=== PATIENT | male | born 1930 | race Caucasian/White ===

== ENCOUNTER 2016-09-13 05:50 | Day surgery (SDC) | payer MEDICARE, OTHER ==
[2016-09-13] VITALS (19 sets, daily range): BP systolic 113–134; BP diastolic 56–70; PULSE 56–84; RESP 14–23; TEMP 97.8–98.7; O2SAT 92–100; Ht 175.9 cm; Wt 76.2 kg
[~2016-09-13] VITALS: Ht 175.9 cm; Wt 76.2 kg
[~2016-09-13 05:50] MED LIST: ASPI-558 PO; FINA5TAB30 PO; LEVO175T40 PO; LISI-127 PO
--- OUTSIDE RECORDS SUMMARY | 2016-09-13 05:55 | XMS REPORT | Continuity of Care Document ---
Author Author [facility] Organization [facility] Address Unknown Phone Unavailable Support Name Relationship Address Phone KAHLIL KLEIN COLD ROLL CATCHER Caregiver [address] [place] [address] Unavailable JOAN CORONADO DO Caregiver [address] [place] [address] Unavailable PASQUALE NORMAN Next Of Kin [address] [place] [address] Insurance Providers Guarantor Raul Barrios Address [address] [place] [address] Email DENIED 16 Payer Everence Policy Number [id number] Subscriber's Name Raul Barrios Relationship 18 Self Payer Medicare Policy Number [id number] Subscriber's Name Raul Barrios Relationship 18 Self Chief Complaint and Reason for Visit Chief Complaint Cough,Fever,Flu,URI Reason for Visit [id number] Problems Active Problems Medical Problem Onset Date Status Bradycardia Unknown Acute Dizzy Unknown Acute Nausea & vomiting Unknown Acute Nausea & vomiting Unknown Acute Past Problems Medical Problem Onset Date Influenza A Unknown Medications Current Home Medications Medication Dose Units Route Directions Days Qty Instructions Start Date Aspirin (Aspir 81) 81 Mg Tablet. 81 Mg Oral Daily 09/08/09 Finasteride (Proscar) 5 Mg Tablet 5 Mg Oral Daily 09/11/09 Levothyroxine Sodium 175 Mcg Tablet 175 Mcg Oral Daily 09/11/09 Lisinopril 10 Mg Tablet 10 Mg Oral Daily 09/11/09 Meclizine Hcl 25 Mg Tab.chew 0.5 Tab Oral Three Times A Day for Dizziness 14 Days 05/27/14 Oseltamivir Phosphate (Tamiflu) 75 Mg Capsule 75 Mg Oral Twice A Day 5 Days [address] Parish Ashraf [facility] [address] [phone] 08/18/16 Social History Social History Problem Response Recorded Date/Time Onset Date Status Hx Substance Use No 05/26/2014 9:34am Not Applicable Not Applicable Hx Alcohol Use No 05/26/2014 9:34am Not Applicable Not Applicable Has the pt used tobacco in the last 12 months No 05/26/2014 1:43pm Not Applicable Not Applicable Tobacco Usage none 05/26/2014 10:00am Not Applicable Not Applicable Hospital Discharge Instructions No hospital discharge instructions. Plan of Care Discharge Date 08/18/16 5:08pm Disposition 01 DISCHARGED HOME, SELF-CARE Condition at Discharge Stable Instructions/Education Provided Fever in Adults (ED) Influenza (ED) Prescriptions See Medication Section Referrals JOAN CORONADO DO Address: [address] [place] [phone] Additional Instructions/Education Take Tamiflu as directed. Use Tylenol or ibuprofen as needed for fevers. Follow with your primary care provider this week. Functional Status No functional status results. Allergies, Adverse Reactions, Alerts Allergen Type Severity Reaction Status Last Updated No Known Drug Allergies Allergy Unknown Active 08/18/16 Immunizations Query Response on File Recorded Date/Time Hx Influenza Vaccination Y 04/1205/26/14 1:43pm Hx Pneumococcal Vaccination Y 200405/26/14 1:43pm Hx Influenza Vaccination Y 04/1205/26/14 1:43pm DTaP Vaccine History YES 08/18/16 4:14pm Influenza Vaccine Hx YES 08/18/16 4:14pm Tetanus Diptheria Vaccine History YES 08/18/16 4:14pm Vital Signs Acute Vital Signs Vital Response Date/Time Temperature (Fahrenheit) 102.4 deg F (96.8 - 99.1) 08/18/2016 4:11pm Temperature (Calculated Celsius) 39.21595 degrees C (36.0 - 37.3) 08/18/2016 4:11pm Pulse Rate (adult) 105 bpm (60 - 100) 08/18/2016 4:11pm O2 Sat by Pulse Oximetry 93 % (90 - 100) 08/18/2016 4:11pm Blood Pressure 121/70 mm Hg 08/18/2016 4:11pm Height (Inches) 68.60 inches 08/18/2016 4:11pm Weight (Kilograms) 78.800 kg 08/18/2016 4:11pm Body Mass Index (BMI) 25.0 08/18/2016 4:11pm Results No known relevant diagnostic tests, laboratory data and/or discharge summary. Procedures No known history of procedures. Encounters Encounter Location Arrival/Admit Date Discharge/Depart Date Attending Provider Departed Emergency Room [facility] 08/18/16 3:39pm 08/18/16 5: 08pm KAHLIL KLEIN APRN Recent Diagnosis
--- OUTSIDE RECORDS SUMMARY | 2016-09-13 05:55 | XMS REPORT | Continuity of Care Document ---
Author Author [facility] Organization [facility] Address Unknown Phone Unavailable Allergies Active Description Code Type Severity Reaction Onset Reported/Identified Relationship to Patient Clinical Status Yes No Known Medication Allergies NKMA N/A N/A 06/03/2014 Medications Problems Procedures Results Encounters ACCT No. Visit Date/Time Discharge Status Pt. Type Provider Facility Loc./Unit Complaint [id number] 09/13/2013 10:22:00 09/13/2013 23 :59:59 CLS Outpatient
--- OUTSIDE RECORDS SUMMARY | 2016-09-13 05:55 | XMS REPORT | Continuity of Care Document ---
Author Author [facility] Organization [facility] Address Unknown Phone Unavailable Support Name Relationship Address Phone SOFÍA WHITE MD Caregiver [address] [place] [phone] SILVIA WILHELM MD Caregiver [address] [place] [phone] PASQUALE NORMAN Next Of Kin [address] [place], [place] [id number] Insurance Providers Payer Name Policy Number Subscriber Name Relationship Medicare [id number] Raul Sherman 18 Self [place] [id number] Raul Sherman 18 Self Advance Directives Directive Response Recorded Date/Time Advanced Directives Type DNR Documentation Living Will DPOA for Healthcare 12:41pm Ordered Resuscitation Status Full Code 05/26/14 1:31pm Chief Complaint and Reason for Visit Chief Complaint N/V AND BRADYCARDIA Reason for Visit Nausea & vomiting Bradycardia Dizzy Nausea & vomiting Problems Medical Problems Problem Onset Date Status Nausea & vomiting Unknown Active Bradycardia Unknown Active Dizzy Unknown Active Nausea & vomiting Unknown Active Medications Medication Dose Route Sig Days/Qty Instructions Order Date Discontinued Date Status Levothyroxine Sodium 175 Mcg PO DAILY 09/11/09 Active Finasteride 5 Mg PO DAILY 09/11/09 Active Lisinopril 10 Mg PO DAILY 09/11/09 Active Aspirin 81 Mg PO DAILY 09/08/09 Active Meclizine HCl 0.5 Tab PO THREE TIMES A DAY For DIZZINESS 14 Days Active Social History Social History Problem Response Recorded Date/Time Smoking Status Former smoker 05/26/2014 1:43pm When did patient START smoking? 1950'S 05/26/2014 1:43pm When did patient STOP smoking? 1950'S SMOKED ONLY 2 YRS 05/26/2014 1:43pm Hx Substance Use No 05/26/2014 9:34am Hx Alcohol Use No 05/26/2014 9:34am Has the pt used tobacco in the last 12 months No 05/26/2014 1:43pm Query Response Start Date Stop Date Smoking Status Former smoker Hospital Discharge Instructions Instructions: Care Instructions: Reason for Hospitalization: NAUSEA, VOMITTING, DIZZINESS, BRADYCARDIA I was in the hospital because (patient own words): I GOT DIZZY Condition at time of discharge: Good UP WITH STAND BY ASSIST Follow Up Appointments: FURTHER FOLLOW UP,LAB WORK,WORK UP PER [facility]. General Information: TRANSFER TO [facility].TRANSFER TO CARE OF DR. VERA CID. Condition at time of discharge: Fair Condition at time of discharge: Good see instructions Condition at time of discharge: Good Fair Plan of Care Discharge Date 05/27/14 10:57am Disposition 01 DISCHARGED HOME, SELF-CARE Instructions/Education Provided DI for Dizziness-Nonvertigo Prescriptions See Medications Section Functional Status Query Response Date Recorded Physical Hygiene Self May 26, 2014 9:34am Disabilities Visual May 26, 2014 12:41pm Devices Used Glasses May 26, 2014 12:41pm Dressing Self May 26, 2014 9:34am Ambulation Self May 26, 2014 9:34am Diet Self May 26, 2014 9:34am Mental Status Alert May 26, 2014 2:32pm Disabilities Visual May 26, 2014 12:41pm Devices Used Glasses May 26, 2014 12:41pm Physical Hygiene Self May 26, 2014 9:34am Dressing Self May 26, 2014 9:34am Ambulation Self May 26, 2014 9:34am Diet Self May 26, 2014 9:34am Allergies, Adverse Reactions, Alerts Allergen Type Severity Reaction Status Last Updated No Known Drug Allergies Allergy Unknown Active 05/26/14 Immunizations Name Given Type Hx Influenza Vaccination Y 04/12 Historical Hx Pneumococcal Vaccination Y 2004 Historical Hx Influenza Vaccination Y 04/12 Historical Vital Signs Acute Vital Signs Vital Response Date/Time Temperature (Fahrenheit) 96.6 deg F (96.8 - 99.1) Temperature (Calculated Celsius) 35.82607 degrees C (36.0 - 37.3) Temperature Source Oral Pulse Rate (adult) 59 bpm (60 - 100) Respiratory Rate 18 breaths/min (10 - 20) O2 Sat by Pulse Oximetry 95 % (90 - 100) Oxygen Delivery Method Room Air Blood Pressure 149/71 mm Hg Blood Pressure Source Automatic Cuff Height 5 ft 10 in Weight 208 lb Body Mass Index 29.0 kg/m^2 Results Test Source Date Result Interp. Ref. Range Comments Activated Partial Thromboplast Time May 26, 2014 10:10am 33.5 SEC N 24-36 Alanine Aminotransferase (ALT/SGPT) May 26, 2014 10:10am 28 U/L N 21-72 Albumin May 26, 2014 10:10am 3.6 G/DL N 3.5-5.0 Albumin/Globulin Ratio May 26, 2014 10:10am 1.7 RATIO N 1.1-2.2 Alkaline Phosphatase May 26, 2014 10:10am 82 U/L N 38-126 Anion Gap May 27, 2014 4:41am 5 MEQ/L N 5-15 Aspartate Amino Transf (AST/SGOT) May 26, 2014 10:10am 20 U/L N 17- 59 BUN/Creatinine Ratio May 27, 2014 4:41am 19 RATIO N 6-26 Band Neutrophils # September 12, 2009 4:47am 7.1 T/MM3 - Band Neutrophils % September 12, 2009 4:47am 42.0 % H 0-6 Basophils # (Auto) May 27, 2014 4:41am 0.1 T/MM3 N 0-0.2 Basophils (%) (Auto) May 27, 2014 4:41am 0.7 % N 0-2 Blood Urea Nitrogen May 27, 2014 4:41am 15.0 MG/DL N 9-20 Calcium Level May 27, 2014 4:41am 8.2 MG/DL DL 8.4-10.2 Calculated Osmolality May 27, 2014 4:41am 273 MOSM/KG N 261-280 Carbon Dioxide Level May 27, 2014 4:41am 31 MEQ/L H 22-30 Chemistry Specimen Hemolysis May 27, 2014 4:41am < 15 0-25 0-25 : No Hemolysis.26-70: Slight Hemolysis - can falsely elevate K and Urine Protein. 71-285: Moderate Hemolysis - can falsely elevate K, Troponin I, CA 19-9, PTH, CSF GLucose, and Urine Protein, and can falsely decrease Phenytoin. 286-999: Gross Hemolysis - can falsely elevate K, Troponin I, CA 19-9, PTH, CSF Glucose, and Urine Protine, and can falsely decrease Phenytoin. Recommend specimen recollection. Chloride Level May 27, 2014 4:41am 106 MEQ/L N 98-107 Creatinine May 27, 2014 4:41am 0.8 MG/DL N 0.8-1.5 Differential Total Cells Counted September 12, 2009 4:47am 100 % - Eosinophils # (Auto) May 27, 2014 4:41am 0.2 T/MM3 N 0-0.5 Eosinophils # (Manual) September 13, 2009 4:45am 1.1 T/MM3 H 0-0.5 Eosinophils % (Manual) September 13, 2009 4:45am 7.0 % H 0-4 Eosinophils (%) (Auto) May 27, 2014 4:41am 2.1 % N 0-4 Globulin May 26, 2014 10:10am 2.1 G/DL L 2.4-3.6 Glomerular Filtration Rate Calc May 27, 2014 4:41am 92 - Glucose Level May 27, 2014 4:41am 86 MG/DL N 75-110 Hematocrit May 27, 2014 4:41am 44.0 % N 41-53 Hemoglobin May 27, 2014 4:41am 15.0 GM/DL N 13.5-17.5 Icterus Index May 27, 2014 4:41am < 2 0-7 Immature Granulocyte # (Auto) May 27, 2014 4:41am 0.01 T/MM3 N 0.00 -0.03 Immature Granulocyte % (Auto) May 27, 2014 4:41am 0.1 % N 0.0-0.5 Lymphocytes # (Auto) May 27, 2014 4:41am 1.5 T/MM3 N 1-4.8 Lymphocytes # (Manual) September 13, 2009 4:45am 0.8 T/MM3 L 1-4.8 Lymphocytes % (Manual) September 13, 2009 4:45am 5.0 % L 23-45 Lymphocytes (%) (Auto) May 27, 2014 4:41am 19.7 % L 23-45 Mean Corpuscular Hemoglobin May 27, 2014 4:41am 30.7 UUG N 26-34 Mean Corpuscular Hemoglobin Concent May 27, 2014 4:41am 34.1 GM/DL N 31-37 Mean Corpuscular Volume May 27, 2014 4:41am 90.0 UM3 N 80-100 Mean Platelet Volume May 27, 2014 4:41am 11.5 UM3 N 9.4-12.4 Monocytes # (Auto) May 27, 2014 4:41am 0.8 T/MM3 N 0-0.8 Monocytes # (Manual) September 13, 2009 4:45am 0.2 T/MM3 N 0-0.8 Monocytes % (Manual) September 13, 2009 4:45am 1.0 % N 0-9.0 Monocytes (%) (Auto) May 27, 2014 4:41am 10.8 % H 0-9.0 BT-Apu-S-Type Natriuretic Peptide May 26, 2014 10:10am 323 PG/ML H 0-175 Rule in cut points: <50 years old=450; 50-75 years old=900; >75 years old=1800; When utilizing ProBNP rule-in cut points, adjustment for impaired renal function is typically not required. Neutrophils # (Auto) May 27, 2014 4:41am 5.1 T/MM3 N 1.8-7.7 Neutrophils # (Manual) September 13, 2009 4:45am 14.3 T/MM3 H 1.8-7.7 Neutrophils % (Manual) September 13, 2009 4:45am 87.0 % H 33-66 Neutrophils (%) (Auto) May 27, 2014 4:41am 66.6 % H 33-66 Platelet Count May 27, 2014 4:41am 139 T/MM3 N 130-400 Potassium Level May 27, 2014 4:41am 3.9 MEQ/L N 3.6-5 Prothromb Time International Ratio May 26, 2014 10:10am 1.08 N 0.81 -1.09 THERAPUTIC RANGE=2.00-3.00 FOR ANTI-THROMBOSIS THERAPUTIC RANGE=2.50- 3.50 FOR IMPLANTED VALVE RDW Standard Deviation May 27, 2014 4:41am 43.7 FL N 36.9-50.2 Red Blood Count May 27, 2014 4:41am 4.89 M/MM3 N 4.50-5.90 Sodium Level May 27, 2014 4:41am 142 MEQ/L N 134-144 Thyroid Stimulating Hormone (TSH) May 26, 2014 10:10am 0.85 MIU/L N 0.47-4.68 Total Bilirubin May 26, 2014 10:10am 1.10 MG/DL N 0.20-1.30 Total Protein May 26, 2014 10:10am 5.7 G/DL L 6.3-8.2 Troponin I May 27, 2014 4:41am < 0.012 ng/ml 0-0.12 Turbidity May 27, 2014 4:41am < 20 0-20 White Blood Count May 27, 2014 4:41am 7.6 T/MM3 N 4.5-11.0 Name: RAUL SHERMAN Unit #: [id number] : 1930 Sex: M Loc / Svc: SRG DOS: 05/26/14 Signed Report #: [id number] DIAGNOSTIC IMAGING REPORT TYPE OF EXAM: CT HEAD W/O CONTRAST Dictated By: JAYNA BOSE MD INDICATION: ITS.REASON: dizziness, gait instability, vomiting CT HEAD W/O CONTRAST: Comparison: None Technique: Axial CT images through the head were performed without contrast. FINDINGS: Atrophy. The ventricles are of normal size, shape, and contour for the patient's age. There are scattered areas of low attenuation in the white matter which most likely represent changes from chronic microvascular ischemia. The brainstem, cerebellum, and cerebral hemispheres otherwise have a normal morphology and CT attenuation. There is no evidence of midline displacement. No hemorrhage, signs of acute territorial stroke, mass effect, mass lesions, or edema is evident. The visualized portions of the skull base, midface, and calvarium demonstrate no abnormality. The paranasal sinuses are well aerated and free of significant disease. The tympanic and mastoid cavities appear normal. IMPRESSION: No acute intracranial abnormality or hemorrhage. There is a preliminary report by [facility]. . Procedures No known history of procedures. Encounters Encounter Location Date/Time Discharged Inpatient [facility] 05/26/14 12:32pm Recent Diagnosis Nausea & vomiting Bradycardia Dizzy Nausea & vomiting
[2016-09-13] MEDS ORDERED: FLEET PHOSPHO-SODA 133 ML ENEMA RECTALLY PRN (06:30)
--- NOTE | 2016-09-13 06:45 | NUR ---
ENEMA PT REPORTED STOOLS WERE STILL BROWN COLORED. FLEETS ENEMA GIVEN AT 0630. HAD LIGHT CARTER RELS Addendum: 09/13/16 at 0650 by DORIS RAHMAN RN RESULTS.
[2016-09-13] MEDS ORDERED: LR 1,000 ML IV SCH (07:00)
[2016-09-13] MEDS ORDERED: LIDOCAINE 1% (10mg/ml) 2ml SDV INJ ONE (07:00)
[2016-09-13] MEDS ORDERED: MIDAZOLAM 5mg/5ml INJECTION ONE ×2 (07:07→07:58)
[2016-09-13] MEDS ORDERED: FENTANYL 100mcg/2ml INJECTION ONE (07:07)
[2016-09-13] MEDS ORDERED: SALINE FLUSH 10ml SYRINGE ONE (07:08)
[2016-09-13] MEDS ORDERED: MIDAZOLAM 5mg/5ml INJECTION IV PRN (07:51)
[2016-09-13] MEDS ORDERED: FENTANYL 100mcg/2ml INJECTION IV PRN (07:51)
[2016-09-13] MEDS ORDERED: DOCU-168 PO (08:53)
--- NOTE | 2016-09-13 11:13 | OPNOTEF ---
DATE OF OPERATION 09/13/2016 INDICATION Rectal bleeding, history of colon cancer. OPERATION Colonoscopy SURGEON Dwayne Love D.O. ASA CLASSIFICATION II Consent signed and on the chart. Routine monitoring with ECG, continuous oximetry and noninvasive blood pressure was performed throughout the procedure and found to be within normal limits. IV sedation was performed with a total of 8 mg of Versed and 80 mcg of Fentanyl. Prior to the procedure, the patient was brought to the endoscopy lab where a brief review of his medical history and physical exam was performed. The procedure was described to him and he was agreeable to continue. All questions were answered. DESCRIPTION OF OPERATION He was given IV sedation and placed in the left lateral decubitus position. A digital rectal exam revealed no masses. The colonoscope was introduced through the anal verge and noted anastomotic site that was at about 15 cm and fairly stenotic with evidence of recent bleeding. Photograph was taken. The endoscope was able to be passed beyond this stricture to the cecum. With careful inspection of the mucosa from the cecum through the ascending colon, there were no polyps, masses, lesions or diverticula. He did have diverticula throughout the transverse colon and then at 60 cm an area of inflammation noted. This was photographed and biopsied. Back to the anastomotic site at 15 cm, again it was fairly stenotic. I did do biopsies of the anastomotic site x3 and then it was necessary to cauterize this with argon coagulation. He tolerated the procedure well. There were no complications. IMPRESSION 1. Diverticulosis of the transverse colon. 2. Inflammation at 60 cm, biopsied. 3. Biopsy of the anastomotic site at 15 cm and then cauterized with argon coagulation. RECOMMENDATIONS Await the pathology report. It may be necessary at some point in the future to dilate this anastomotic site due to how stenotic it is. I will have him take Colace once or twice daily to keep his stool soft as well. JUVE
== END 2016-09-13 10:12 | disposition home or self-care (01) ==
LOC: NSC 05:50
PROVIDERS: ATTEND Internal Medicine
DX: K62.5 Hemorrhage of anus and rectum (principal); K52.9 Noninfective gastroenteritis and colitis, unspecified; K63.89 Other specified diseases of intestine; K57.30 Diverticulosis of large intestine without perforation or abscess without bleeding; Z85.038 Personal history of other malignant neoplasm of large intestine; I10 Essential (primary) hypertension; E03.9 Hypothyroidism, unspecified; E53.8 Deficiency of other specified B group vitamins; Z79.82 Long term (current) use of aspirin; Z79.899 Other long term (current) drug therapy
CPT/HCPCS: 45380; A9270; J2250; J3010; J7120; 88305

== ENCOUNTER 2016-10-21 14:25 | Outpatient (CLI) | payer MEDICARE, OTHER ==
[2016-10-21] VITALS (16 sets, daily range): BP systolic 101–142; BP diastolic 55–73; PULSE 58–70; RESP 14–32; TEMP 97.7; O2SAT 90–96; Ht 177.8 cm; Wt 76.6 kg
[~2016-10-21] VITALS: Ht 177.8 cm; Wt 76.6 kg
[~2016-10-21 14:25] MED LIST changes: +DOCU-168 PO; +NORMAL SALINE 1,000 ML IV SCH
--- NOTE | 2016-10-21 14:33 | NUR ---
ADMIT PT AMBULATORY TO ROOM 122. DENIES CP. FAMILY AT BEDSIDE.
--- NOTE | 2016-10-21 14:47 | NUR ---
CM CM IN TO VISIT WITH PT. HE IS ALERT AND ORIENTED. HE PLANS TO DC HOME. HE DENIES DC NEEDS. HIS SPOUSE IS PRESENT. SHE IS AGREEABLE TO THIS PLAN. THEY ARE GIVEN CM CONTACT INFORMATION. Addendum: 10/21/16 at 1448 by ANDERSON STEVENS RN Amended: Links added.
[2016-10-21] MEDS ORDERED: SUCR1TAB PO (15:08)
[2016-10-21] MEDS ORDERED: OMEP40CA52 PO (15:08)
[2016-10-21] MEDS ORDERED: TRIA1TAB3 PO (15:08)
[2016-10-21 15:11] LABS: BASOPHILS # (AUTO) 0.1 T/MM3 (0-0.2); BASOPHILS % (AUTO) 0.8 % (0-2); EOSINOPHILS # (AUTO) 0.1 T/MM3 (0-0.5); EOSINOPHILS % (AUTO) 1.7 % (0-4); HCT - HEMATOCRIT 46.8 % (41-53); HGB - HEMOGLOBIN 16.4 GM/DL (13.5-17.5); IMMATURE GRANULOCYTE # (AUTO) 0.01 T/MM3 (0.00-0.03); IMMATURE GRANULOCYTE % (AUTO) 0.1 % (0.0-0.5); LYMPHOCYTES # (AUTO) 1.8 T/MM3 (1-4.8); LYMPHOCYTES % (AUTO) 23.6 % (23-45); MEAN CORPUSCULAR HGB 30.7 UUG (26-34); MEAN CORPUSCULAR VOLUME 87.6 UM3 (80-100); MEAN PLATELET VOLUME 11.5 UM3 (9.4-12.4); MONOCYTES # (AUTO) 0.7 T/MM3 (0-0.8); MONOCYTES % (AUTO) 9.8 % (0-9.0); NEUTROPHILS #(AUTO)-ABSOLUTE 4.8 T/MM3 (1.8-7.7); RED BLOOD COUNT 5.34 M/MM3 (4.50-5.90); WBC - WHITE BLOOD COUNT 7.5 T/MM3 (4.5-11.0)
[2016-10-21 15:18] LABS: ANION GAP 13 MEQ/L (5-15); BUN/CREATININE RATIO 30 RATIO (6-26); CALCIUM 9.1 MG/DL (8.4-10.2); CHLORIDE 103 MEQ/L (98-107); CO2 - CARBON DIOXIDE 27 MEQ/L (22-30); CREATININE 0.9 MG/DL (0.8-1.5); GLOMERULAR FILTRATION RATE 80; GLUCOSE 95 MG/DL (75-110); POTASSIUM 3.9 MEQ/L (3.6-5); SODIUM 143 MEQ/L (134-144)
[2016-10-21] MEDS ORDERED: LIDOCAINE 1% (10mg/ml) 30ml SDV ONE (18:08)
[2016-10-21] MEDS ORDERED: HEPARIN 1,000units in NS 500ml BAG IV ONE (18:08)
[2016-10-21] MEDS ORDERED: FENTANYL 100mcg/2ml INJECTION ONE (18:49)
[2016-10-21] MEDS ORDERED: MIDAZOLAM 2mg/2ml INJECTION ONE (18:50)
--- NOTE | 2016-10-21 18:52 | NUR ---
CATH PT TO SIGHT MOUNTER PER CATH CART
[2016-10-21] MEDS ORDERED: NITROGLYCERIN 50mg/10ml INJECTION IV ONE (19:01)
[2016-10-21] MEDS ORDERED: VERAPAMIL 5mg/2ml INJECTION IV ONE (19:01)
[2016-10-21] MEDS ORDERED: MAG-AL + SIM LIQUID 30 ML UDC PO PRN (19:30)
[2016-10-21] MEDS ORDERED: LORAZEPAM 0.5 MG TABLET PO PRN (19:30)
[2016-10-21] MEDS ORDERED: NITROGLYCERIN 0.4 MG SUBLINGUAL TABLET SL PRN (19:30)
[2016-10-21] MEDS ORDERED: MILK OF MAGNESIA 30 ML SUSP PO PRN (19:30)
[2016-10-21] MEDS ORDERED: METOCLOPRAMIDE 10mg/2ml INJECTION IV PRN (19:30)
[2016-10-21] MEDS ORDERED: LORAZEPAM 2 MG/ML INJECTION IV PRN (19:30)
[2016-10-21] MEDS ORDERED: ONDANSETRON 4mg/2ml INJECTION IV PRN (19:30)
[2016-10-21] MEDS ORDERED: MORPHINE SULFATE 4 MG SYRINGE IV PRN ×2 (19:30)
[2016-10-21] MEDS ORDERED: ATROPINE 1 MG/ML VIAL IV PRN (19:30)
[2016-10-21] MEDS ORDERED: ACETAMINOPHEN 325 MG TABLET PO PRN (19:30)
[2016-10-21] MEDS ORDERED: BISACODYL 5 MG E.C. TABLET PO PRN (19:30)
[2016-10-21] MEDS ORDERED: HYDROCODONE/APAP 5 mg/325 mg TABLET PO PRN (19:30)
[2016-10-21] MEDS ORDERED: PROMETHAZINE 25 MG INJECTION IV PRN (19:30)
[2016-10-21] MEDS ORDERED: BISACODYL 10 MG SUPPOSITORY RECTALLY PRN (19:30)
--- NOTE | 2016-10-21 19:34 | NUR ---
RETURN PATIENT BACK FROM ADMINISTRATIVE AIDE AT THIS TIME WITH TR BAND IN PLACE
--- NOTE | 2016-10-21 23:30 | NUR ---
SUMMARY AWAKE AND ALERT. NO COMPLAINTS OF PAIN OR DISCOMFORT. RIGHT WRIST SITE SOFT WITHOUT SIGNS OF HEMATOMA. FAMILY REMAINS AT THE BEDSIDE. REPORT GIVEN TO ONCOMING RN-MIKE VELAZCO RN.
[2016-10-22 00:03] VITALS: BP 120/57; PULSE 57; RESP 18; TEMP 97.7; O2SAT 94
--- NOTE | 2016-10-22 00:32 | NUR ---
DISMISSAL PT DISMISSED VIA W/C THROUGH E.R EXIT ACCOMPANIED BY STAFF. DISCHARGE PAPERWORK GIVEN AND REVIEWED WITH PT, PT VERBALIZED UNDERSTANDING. IV DC'D AND ARM BAND CUT OFF. ALL BELONGINGS AND HOME MEDS SENT HOME WITH PT. PTS MET AT E.R EXIT TO DRIVE PT HOME VIA PERSONAL VEHICLE.
--- NOTE | 2016-10-22 10:49 | CVPROF ---
DATE OF PROCEDURE October 21, 2016 PRIMARY CARE PHYSICIAN Dwayne Love, DO INDICATION The patient is a pleasant 86-year-old gentleman with abnormal stress test and was referred for further evaluation by cardiac catheterization and possible intervention. INFORMED CONSENT Informed consent was obtained after explaining the procedure and the potential risks to the patient who agreed to proceed with the procedure. PROCEDURE 1. Left heart catheterization. 2. Coronary angiography. 3. Left ventriculography. TECHNIQUE He was prepped and draped in the usual sterile techniques. Conscious sedation was performed using Versed and fentanyl. 1% lidocaine was used for local anesthesia. Using modified Seldinger technique, arterial access was obtained into the right radial artery with placement of a 6-Syriac arterial sheath. 3000 units of heparin, 300 mcg of nitroglycerin, and 2.5 mg of verapamil were given through the arterial sheath. LEFT VENTRICULOGRAPHY Left ventriculography in single-plane MILLER shallow projection showed mild mid anterior hypokinesia with ejection fraction of about 50% with no mitral regurgitation or gradient across the aortic valve. LVEDP was about 8. CORONARY ANGIOGRAPHY Left main, left anterior descending and diagonals, left circumflex and marginals, and right coronary artery all had minor irregularities with stenosis up to about 30% with no high-grade stenosis. It was a codominant system. The patient tolerated the procedure well with no complications. IMPRESSION 1. Mild coronary artery disease as described above. 2. Mild mid anterior hypokinesia with ejection fraction of about 50%. PLAN Medical management. JUVE
== END 2016-10-22 00:32 | disposition home or self-care (01) ==
LOC: CATH 14:25 → SRG 14:26 → CATH 10-22 00:32
PROVIDERS: ATTEND Internal Medicine Cardiovascular Disease
DX: I25.10 Atherosclerotic heart disease of native coronary artery without angina pectoris (principal); I10 Essential (primary) hypertension; R94.39 Abnormal result of other cardiovascular function study; K21.9 Gastro-esophageal reflux disease without esophagitis; Z79.82 Long term (current) use of aspirin; Z79.899 Other long term (current) drug therapy; E89.0 Postprocedural hypothyroidism; Z82.3 Family history of stroke
CPT/HCPCS: 80048; 85025; 93005; 93458; C1769; C1893; J1644; J2250; J3010; J3490; J7030